=== PATIENT | female | born 1995 | race American Indian/Alaskan Native ===

== ENCOUNTER 2020-10-18 23:47 | Emergency (ER) | payer MEDICAID ==
[2020-10-19 00:34] LABS: Basophils # (Auto) 0.1 K/mm3 (0.0-0.1); Basophils % (Auto) 0.5 % (0.0-1.8); Eosinophils % (Auto) 0.1 % (0.0-4.3); Hematocrit 38.5 % (30.3-42.9); Hemoglobin 13.7 gm/dl (10.1-14.3); Lymphocytes # (Auto) 1.2 K/mm3 (1.2-5.4); Lymphocytes % (Auto) 8.9 % (13.4-35.0); Mean Corpuscular HGB Conc 36 % (30-34); Mean Corpuscular Volume 85 fl (79-97); Monocytes # (Auto) 0.9 K/mm3 (0.0-0.8); Platelet Count 240 K/mm3 (140-440); Red Blood Count 4.51 M/mm3 (3.65-5.03); Red Cell Distribution Width 13.5 % (13.2-15.2)
[2020-10-19 00:55] LABS: Alanine Aminotransferase 5 units/L (7-56); Albumin 4.4 g/dL (3.9-5); BUN/Creatinine Ratio 13; Blood Urea Nitrogen 10 mg/dL (7-17); Calcium 9.4 mg/dL (8.4-10.2); Hemolysis Index 3
[2020-10-19 00:56] LABS: Bacteria,Urine 1+ /HPF (Negative); Bilirubin,Urine NEG (Negative); Blood,Urine NEG (Negative); Color,Urine Yellow (Yellow); Mucus,Urine 3+ /HPF; Urobilinogen,Urine < 2.0 mg/dL (<2.0)
[2020-10-19] MEDS ORDERED: ONDANSETRON 4 MG/2 ML INJ IV ONE (02:19)
[2020-10-19] MEDS ORDERED: MORPHINE 4 MG/1 ML INJ IV ONE (02:19)
[2020-10-19] MEDS ORDERED: KETOROLAC 30 MG/1 ML INJ IV ONE (02:21)
--- NOTE | 2020-10-19 02:22 | Emergency Department Report ---
ED Abdominal Pain HPI - General Chief Complaint: Nausea/Vomiting/Diarrhea Stated Complaint: VOMITING/BODY PAIN/SOB Time Seen by Provider: 10/19/20 02:09 Source: patient Mode of arrival: Ambulatory Limitations: No Limitations - History of Present Illness Initial Comments: 25-year-old -Polish female patient presents with complaints of sudden onset of low back pain and right lower abdominal pain starting, leaking yesterday morning. She rates her pain is a 10/10 in severity and also reports some vomiting. No hematemesis/coffee-ground emesis per patient, diarrhea, melena/hematochezia, dysuria/hematuria/urinary frequency, vaginal discharge/dy spareunia, vaginal bleeding, cough, shortness of breath, chest pain. She denies any history of abdominal surgeries or kidney stones. -: Sudden Severity scale (0 -10): 10 Quality: stabbing, aching Consistency: constant - Related Data Previous Rx's Medication Instructions Recorded Last Taken Type Acetaminophen/Codeine [Tylenol 1 tab PO Q6H PRN #10 tab 10/19/20 Unknown Rx /Codeine # 3 tab] Doxycycline Monohydrate 100 mg PO BID 14 Days #28 capsule 10/19/20 Unknown Rx [Doxycycline Monohydrate CAP] Ibuprofen [Motrin 800 MG tab] 800 mg PO Q8HR PRN #21 tablet 10/19/20 Unknown Rx metroNIDAZOLE [Flagyl TAB] 500 mg PO Q12HR 7 Days #14 tab 10/19/20 Unknown Rx Allergies Allergy/AdvReac Type Severity Reaction Status Date / Time No Known Allergies Allergy Unverified 10/19/20 00:03 ED Review of Systems ROS: Stated complaint: VOMITING/BODY PAIN/SOB Other details as noted in HPI Constitutional: chills, weakness. denies: diaphoresis, fever, malaise Respiratory: denies: cough, shortness of breath Cardiovascular: denies: chest pain Gastrointestinal: abdominal pain, nausea, vomiting. denies: diarrhea, constipation, hematemesis, melena Genitourinary: denies: urgency, dysuria, frequency, hematuria, discharge, dyspareunia Musculoskeletal: denies: back pain Neurological: denies: headache, numbness, paresthesias ED Past Medical Hx - Past Medical History Additional medical history: brain tumor - Surgical History Additional Surgical History: brain tumor removal - Social History Smoking Status: Never Smoker Substance Use Type: None - Medications Home Medications: Home Medications Medication Instructions Recorded Confirmed Last Taken Type Acetaminophen/Codeine [Tylenol 1 tab PO Q6H PRN #10 tab 10/19/20 Unknown Rx /Codeine # 3 tab] Doxycycline Monohydrate 100 mg PO BID 14 Days #28 capsule 10/19/20 Unknown Rx [Doxycycline Monohydrate CAP] Ibuprofen [Motrin 800 MG tab] 800 mg PO Q8HR PRN #21 tablet 10/19/20 Unknown Rx metroNIDAZOLE [Flagyl TAB] 500 mg PO Q12HR 7 Days #14 tab 10/19/20 Unknown Rx ED Physical Exam - General Limitations: No Limitations General appearance: alert, other (Appears very uncomfortable) - Head Head exam: Present: atraumatic, normocephalic - Eye Eye exam: Present: normal appearance - Respiratory Respiratory exam: Present: normal lung sounds bilaterally. Absent: respiratory distress - Cardiovascular Cardiovascular Exam: Present: regular rate, normal rhythm. Absent: systolic murmur, diastolic murmur, rubs, gallop - GI/Abdominal GI/Abdominal exam: Present: soft, tenderness (Right lower quadrant, right side of abdomen), normal bowel sounds. Absent: distended, guarding, rebound, rigid - Extremities Exam Extremities exam: Present: full ROM - Back Exam Back exam: Present: full ROM, other (Right lower back tenderness to palpation). Absent: CVA tenderness (R), CVA tenderness (L), vertebral tenderness - Neurological Exam Neurological exam: Present: alert, oriented X3 - Psychiatric Psychiatric exam: Present: normal affect, normal mood - Skin Skin exam: Present: warm, dry, intact, normal color. Absent: rash ED Course Vital Signs 10/19/20 10/19/20 10/19/20 00:07 02:32 02:33 Temperature 100.9 F H Pulse Rate 101 H Respiratory 18 16 16 Rate Blood Pressure 126/79 Blood Pressure [Left] O2 Sat by Pulse 100 Oximetry 10/19/20 10/19/20 10/19/20 03:02 03:03 03:30 Temperature 100.2 F H Pulse Rate 89 Respiratory 18 18 18 Rate Blood Pressure Blood Pressure 101/64 [Left] O2 Sat by Pulse 99 Oximetry 10/19/20 10/19/20 10/19/20 04:41 04:42 05:41 Temperature Pulse Rate Respiratory 18 18 18 Rate Blood Pressure Blood Pressure [Left] O2 Sat by Pulse Oximetry 10/19/20 10/19/20 05:42 05:55 Temperature 98.6 F Pulse Rate 90 Respiratory 18 18 Rate Blood Pressure Blood Pressure 116/73 [Left] O2 Sat by Pulse 97 Oximetry ED Medical Decision Making - Lab Data Result diagrams: 10/19/20 00:18 10/19/20 00:18 - Radiology Data Radiology results: report reviewed CT ABDOMEN AND PELVIS WITH CONTRAST HISTORY: severe acute R flank/abdominal pain. COMPARISON: None. TECHNIQUE: CT images of the abdomen and pelvis were obtained following administration of intravenous contrast. All CT scans at this location are performed using CT dose reduction for ALARA by means of automated exposure control. CONTRAST: 100 ml of intravenous contrast administered. FINDINGS: Lungs/bones: Nodular densities are seen in the right lower lung. Groundglass nodular density measures 9 mm with additional nodular density measuring 4 mm. Small nodular densities in the left lower lung noted as well. Large left lower lung nodular density measures 5 mm. Abdomen/pelvis: Fatty infiltration of the liver. No focal liver lesion is seen. Spleen, adrenal glands, pancreas appears normal. Gallbladder appears normal. No CT evidence for appendicitis. There is some gas within the appendix. The appendix is not seen in its entirety. No bowel obstruction. Uteruses heterogeneous with fluid in the endometrium. Uterus is mildly enlarged. Small left free fluid is seen in the pelvis. Urinary bladder wall thickening is seen. No bowel obstruction is identified. There may be some mild thickening of the distal sigmoid colon into the rectum. No acute bone findings are seen. Small sclerotic density left iliac bone measures 6 mm. A few mildly prominent inguinal nodes. IMPRESSION: 1. No renal or ureteral stone is seen. No hydronephrosis. Bladder wall is thickened. Correlation with urinalysis. 2. Uterus is heterogeneous and enlarged with fluid in the endometrium. Small amount of free fluid is seen in the pelvis. Small left adnexal cyst. Clinical correlation. 3. Appendix appears normal. 4. Multiple pulmonary nodules in the lung bases. Findings could represent atypical infection however pulmonary nodules or malignancy cannot be completely excluded. A follow- up CT chest is recommended. - Medical Decision Making 25-year-old -[place]ish female patient presents with complaints of sudden onset of low back pain and right lower abdominal pain starting, leaking yesterday morning. She rates her pain is a 10/10 in severity and also reports some vomiting. No hematemesis/coffee-ground emesis per patient, diarrhea, melena/hematochezia, dysuria/hematuria/urinary frequency, vaginal discharge/dyspareunia, vaginal bleeding, cough, shortness of breath, chest pain. She denies any history of abdominal surgeries or kidney stones. Patient presents with fever 100.9 and mild tachycardia and complaints of right lower back pain and abdominal pain. CBC shows white count of 13.2. No significant abnormalities noted on CMP or UA. Lactic acid 2.2. CT abdomen is negative for appendicitis, kidney stones, or other acute abnormalities, however it does show mild pelvic fluid. On pelvic exam, patient had copious vaginal discharge with CMT. Will treat for PID. Rocephin IM given here in ED. She will discharge home on Flagyl and doxycycline. Discussed importance of refraining from intercourse for 2 weeks and partner getting tested and treated. Patient to follow-up with primary care within 3 days. Her vitals are now normal, she is well-appearing, she is stable for discharge home. Strict return precautions were discussed in great detail with patient who verbalizes understanding. Patient also instructed to follow-up with her primary care doctor for further evaluation of the pulmonary nodules noted on CT scan today. Critical care attestation.: If time is entered above; I have spent that time in minutes in the direct care of this critically ill patient, excluding procedure time. ED Disposition Clinical Impression: PID (acute pelvic inflammatory disease), Pulmonary nodule Disposition: DC-01 TO HOME OR SELFCARE Is pt being admited?: No Condition: Stable Instructions: Pulmonary Nodule, Pelvic Inflammatory Disease Additional Instructions: follow up with your primary care doctor for further evaluation of the pulmonary nodules noted on your CT scan today Prescriptions: Doxycycline Monohydrate [Doxycycline Monohydrate CAP] 100 mg PO BID 14 Days #28 capsule metroNIDAZOLE [Flagyl TAB] 500 mg PO Q12HR 7 Days #14 tab Ibuprofen [Motrin 800 MG tab] 800 mg PO Q8HR PRN #21 tablet PRN Reason: pain/fever Acetaminophen/Codeine [Tylenol /Codeine # 3 tab] 1 tab PO Q6H PRN #10 tab PRN Reason: Pain , Severe (7-10) Referrals: EVGENY REED MD [Primary Care Provider] - 3-5 Days Forms: Work/School Release Form(ED)
--- NOTE | 2020-10-19 03:04 | Cat Scan Report ---
CT ABDOMEN AND PELVIS WITH CONTRAST HISTORY: severe acute R flank/abdominal pain. COMPARISON: None. TECHNIQUE: CT images of the abdomen and pelvis were obtained following administration of intravenous contrast. All CT scans at this location are performed using CT dose reduction for ALARA by means of automated exposure control. CONTRAST: 100 ml of intravenous contrast administered. FINDINGS: Lungs/bones: Nodular densities are seen in the right lower lung. Groundglass nodular density measure s 9 mm with additional nodular density measuring 4 mm. Small nodular densities in the left lower lung noted as well. Large left lower lung nodular density measures 5 mm. Abdomen/pelvis: Fatty infiltration of the liver. No focal liver lesion is seen. Spleen, adrenal glan ds, pancreas appears normal. Gallbladder appears normal. No CT evidence for appendicitis. There is so me gas within the appendix. The appendix is not seen in its entirety. No bowel obstruction. Uteruses heterogeneous with fluid in the endometrium. Uterus is mildly enlarged. Small left free flui d is seen in the pelvis. Urinary bladder wall thickening is seen. No bowel obstruction is identified. There may be some mild thickening of the distal sigmoid colon into the rectum. No acute bone finding s are seen. Small sclerotic density left iliac bone measures 6 mm. A few mildly prominent inguinal no dion. IMPRESSION: 1. No renal or ureteral stone is seen. No hydronephrosis. Bladder wall is thickened. Correlation with urinalysis. 2. Uterus is heterogeneous and enlarged with fluid in the endometrium. Small amount of free fluid is seen in the pelvis. Small left adnexal cyst. Clinical correlation. 3. Appendix appears normal. 4. Multiple pulmonary nodules in the lung bases. Findings could represent atypical infection however pulmonary nodules or malignancy cannot be completely excluded. A follow-up CT chest is recommended. Signer Name: Markie Abarca MD Signed: 10/19/2020 3:00 AM Workstation Name: [id number]
[2020-10-19] MEDS ORDERED: SODIUM CHLORIDE 0.9% 1000 ML 1,000 ML IV ONE (04:13)
[2020-10-19] MEDS ORDERED: LIDOCAINE-MPF (1%) 10 MG/1 ML VIAL 5 ML INFILTRATI ONE (04:17)
[2020-10-19] MEDS ORDERED: ACETAMINOPHEN 500 MG TAB PO STA (04:35)
[2020-10-19] MEDS ORDERED: IBUPROFEN 800 MG TAB PO STA (04:35)
[2020-10-19 06:29] VITALS: BP 116/73
== END 2020-10-19 05:55 | disposition home or self-care (01) ==
LOC: ED 23:47
DX: N73.0 Acute parametritis and pelvic cellulitis (principal); R91.1 Solitary pulmonary nodule; Z79.899 Other long term (current) drug therapy
CPT/HCPCS: 36415; 74177; 80053; 81001; 82140; 84703; 85025; 87040; 96361; 96372; 96374; 96375; 99284; J0696; J1885; J2270; J2405; J7030; Q9967